=== PATIENT | male | born 1985 | race Two or more races ===

== ENCOUNTER → 2017-08-22 | Outpatient (REF) | payer BC, OTHER ==
[~2017-08-22] MED LIST: MEDR4TAB PO; PERC5TAB12 PO
== END ==
LOC: M LAB REF 13:33
PROVIDERS: ATTEND Surgery
DX: L90.5 Scar conditions and fibrosis of skin (principal)

== ENCOUNTER → 2017-11-07 | Outpatient (CLI) | payer OTHER | LOC: M LRY 16:48 | DX: M51.37 Other intervertebral disc degeneration, lumbosacral region (principal) | CPT/HCPCS: 72110 ==

== ENCOUNTER 2018-11-19 10:45 | Emergency (ER) | payer MEDICAID, OTHER ==
[~2018-11-19] VITALS: Ht 170.2 cm; Wt 131.8 kg
[2018-11-19] MEDS ORDERED: NAPR-50 PO (12:03)
[2018-11-19] MEDS ORDERED: ROBA500T PO (12:03)
[2018-11-19 12:12] VITALS: BP 134/72
== END 2018-11-19 12:15 | disposition home or self-care (01) ==
LOC: M ED 10:45
DX: S39.012A Strain of muscle, fascia and tendon of lower back, initial encounter (principal); M62.830 Muscle spasm of back; X58.XXXA Exposure to other specified factors, initial encounter; Y92.098 Other place in other non-institutional residence as the place of occurrence of the external cause; Z98.1 Arthrodesis status; Z79.899 Other long term (current) drug therapy

== ENCOUNTER 2019-01-04 12:20 | Emergency (ER) | payer OTHER ==
[~2019-01-04] VITALS: Ht 170.2 cm; Wt 134.8 kg
[2019-01-04 12:20] VITALS: BP 136/77
[~2019-01-04 12:20] MED LIST changes: +NAPR-837 PO; +ROBA500T PO
[2019-01-04] MEDS ORDERED: CYCL5TAB PO (12:23)
[2019-01-04] MEDS ORDERED: CYCL10TA PO (13:40)
[2019-01-04] MEDS ORDERED: IBUP-1022 PO (13:40)
== END 2019-01-04 13:53 | disposition home or self-care (01) ==
LOC: M ED 12:20
DX: M54.12 Radiculopathy, cervical region (principal)

== ENCOUNTER → 2019-05-28 | Outpatient (CLI) | payer OTHER, MEDICAID ==
[~2019-05-28] MED LIST changes: +CYCL10TA PO; +CYCL5TAB PO; +IBUP-1022 PO
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
== END ==
LOC: M PAIN 15:00
PROVIDERS: ATTEND Anesthesiology
DX: M50.10 Cervical disc disorder with radiculopathy, unspecified cervical region (principal); G89.29 Other chronic pain; F17.210 Nicotine dependence, cigarettes, uncomplicated; E66.01 Morbid (severe) obesity due to excess calories; Z68.42 Body mass index [BMI] 45.0-49.9, adult; Z79.899 Other long term (current) drug therapy

== ENCOUNTER 2019-06-15 20:36 | Emergency (ER) | payer MEDICAID, OTHER ==
[~2019-06-15] VITALS: Ht 170.2 cm; Wt 136.4 kg
[2019-06-15] MEDS ORDERED: TIZA2TA (20:41)
[2019-06-15] MEDS ORDERED: ADACEL/BOOSTRIX VACCINE (DIPHTH/PERTUSS/ACELL/TETANUS)0.5ML SYR (90715) IM ONE (21:45)
[2019-06-15] MEDS ORDERED: LIDOCAINE 2% MDV 20 ML VIAL SC ONE (22:00)
[2019-06-15 22:41] VITALS: BP 130/71
== END 2019-06-15 22:48 | disposition home or self-care (01) ==
LOC: M ED 20:36
DX: S61.214A Laceration without foreign body of right ring finger without damage to nail, initial encounter (principal); W26.8XXA Contact with other sharp object(s), not elsewhere classified, initial encounter; Y92.69 Other specified industrial and construction area as the place of occurrence of the external cause

== ENCOUNTER → 2020-04-18 | Outpatient (CLI) | payer OTHER ==
[~2020-04-18] MED LIST changes: +CYCL-707 PO; -CYCL10TA PO; +DOXY100C37 PO; +TIZA2TA
== END ==
LOC: M LABSMTC 09:57
PROVIDERS: ATTEND Anesthesiology
DX: Z01.818 Encounter for other preprocedural examination (principal); Z11.59 Encounter for screening for other viral diseases
CPT/HCPCS: C9803; U0003

== ENCOUNTER → 2020-04-23 | Day surgery (SDC) | payer OTHER ==
[~2020-04-23] VITALS: Ht 170.2 cm; Wt 137.4 kg
[~2020-04-23] MED LIST changes: +GLYCOPYRROLATE INJ 0.2 MG/ML 2 ML VIAL As Ordered ONE; +HYDROMORPHONE HCL 0.5 MG/ 0.5 ML SYRINGE (J1170 PER 1) IV PRN; +LIDOCAINE 1% SDV 30ML VIAL As Ordered ONE; +LIDOCAINE 2% 100MG/5ML SDV (FOR ANES.) As Ordered ONE; +LR 1,000 ML IV ONE; +LR 1,000 ML IV SCH; +MIDAZOLAM INJ 2MG/2ML VIAL (J2250 PER 1MG) As Ordered ONE; +NEOSPORIN TOP OINT 15GM As Ordered ONE; +NEOSTIGMINE 10MG/10ML VIAL (J2710 PER 0.5MG) As Ordered ONE; +ONDANSETRON 4MG/2ML VIAL As Ordered ONE; +ONDANSETRON 4MG/2ML VIAL IV PRN; +ROCURONIUM BROMIDE 50 MG/5 ML VIAL As Ordered ONE; +dexameTHASONE 4 MG/ML 1ML VIAL (J1100 PER 1MG) IV ONE; +ePHEDrine SULFATE 25 MG/5 ML(5MG/ML) SYRINGE As Ordered ONE; +fentaNYL 100 MCG/2 ML INJECTION (J3010) As Ordered ONE; +fentaNYL 100 MCG/2 ML INJECTION (J3010) IV PRN; +oxyCODONE 5MG TAB PO PRN; +propofoL 200 MG/20 ML VIAL As Ordered ONE
[2020-04-23 16:00] VITALS: BP 124/77
== END | disposition home or self-care (01) ==
LOC: M SDC 11:12
PROVIDERS: ATTEND Otolaryngology
DX: L72.0 Epidermal cyst (principal); K21.9 Gastro-esophageal reflux disease without esophagitis; Z79.899 Other long term (current) drug therapy; F17.218 Nicotine dependence, cigarettes, with other nicotine-induced disorders
CPT/HCPCS: 11443; 87070; 87075; 87077; 87186; 87205; 88108; 88304; 88313; J1100; J2250; J2405; J2710; J3010

== ENCOUNTER → 2020-08-25 | Outpatient (CLI) | payer SELFPAY ==
[~2020-08-25] MED LIST changes: -GLYCOPYRROLATE INJ 0.2 MG/ML 2 ML VIAL As Ordered ONE; -HYDROMORPHONE HCL 0.5 MG/ 0.5 ML SYRINGE (J1170 PER 1) IV PRN; -LIDOCAINE 1% SDV 30ML VIAL As Ordered ONE; -LIDOCAINE 2% 100MG/5ML SDV (FOR ANES.) As Ordered ONE; -LR 1,000 ML IV ONE; -LR 1,000 ML IV SCH; -MIDAZOLAM INJ 2MG/2ML VIAL (J2250 PER 1MG) As Ordered ONE; -NEOSPORIN TOP OINT 15GM As Ordered ONE; -NEOSTIGMINE 10MG/10ML VIAL (J2710 PER 0.5MG) As Ordered ONE; -ONDANSETRON 4MG/2ML VIAL As Ordered ONE; -ONDANSETRON 4MG/2ML VIAL IV PRN; -ROCURONIUM BROMIDE 50 MG/5 ML VIAL As Ordered ONE; -dexameTHASONE 4 MG/ML 1ML VIAL (J1100 PER 1MG) IV ONE; -ePHEDrine SULFATE 25 MG/5 ML(5MG/ML) SYRINGE As Ordered ONE; -fentaNYL 100 MCG/2 ML INJECTION (J3010) As Ordered ONE; -fentaNYL 100 MCG/2 ML INJECTION (J3010) IV PRN; -oxyCODONE 5MG TAB PO PRN; -propofoL 200 MG/20 ML VIAL As Ordered ONE
== END ==
LOC: M LABSMTC 12:50
PROVIDERS: ATTEND Pediatrics
DX: Z20.828 Contact with and (suspected) exposure to other viral communicable diseases (principal)